=== PATIENT | male | born 1950 | race Caucasian/White ===

== ENCOUNTER 2019-02-05 13:07 | Inpatient (IN) | payer OTHER, MEDICAID ==
[~2019-02-05] VITALS: Ht 162.6 cm; Wt 78.9 kg
[2019-02-05 13:07] VITALS: BP 128/77
--- NOTE | 2019-02-05 13:28 | NUR ---
PT TAKEN TO ER BED 4 VIA WHEELCHAIR
--- NOTE | 2019-02-05 13:35 | NUR ---
REFFERED TO ER BY FOR CHECK UP FOR POSS. DVT D/T INCREASED EDEMA IN RLE. 5/10 PAIN IN RLE. PT TAKES WARFARIN FOR AFIB. WHEELCHAIR BOUND. RLE IS SWOLLEN, RED, AND WARM TO TOUCH. A& O X2, DENIES N/V/D;VSS; PATIENT POSITIONED FOR COMFORT; HOB ELEVATED; BEDRAILS UP X1; BED DOWN. ER MD MADE AWARE OF PT STATUS.
--- NOTE | 2019-02-05 13:35 | NUR ---
Note mele in EDM - 02/05/19 at 1456 by [email or web address] REFFERED TO ER BY FOR CHECK UP FOR POSS. DVT D/T INCREASED EDEMA IN RLE. 5/10 PAIN IN RLE. PT TAKES WARFARIN FOR AFIB. WHEELCHAIR BOUND. RLE IS SWOLLEN, RED, AND WARM TO TOUCH.
--- NOTE | 2019-02-05 14:35 | NUR ---
Note undone in EDM - 02/05/19 at 1458 by [email or web address] REFFERED TO ER BY DR FOR CHECK UP FOR POSS. DVT D/T INCREASED EDEMA IN RLE. 5/10 PAIN IN RLE. PT TAKES WARFARIN FOR AFIB. WHEELCHAIR BOUND. RLE IS SWOLLEN, RED, AND WARM TO TOUCH. A& O X2, DENIES N/V/D;VSS; PATIENT POSITIONED FOR COMFORT; HOB ELEVATED; BEDRAILS UP X1; BED DOWN. ER MD MADE AWARE OF PT STATUS.
[2019-02-05 14:37] LABS: BASOPHILS % (AUTO) 0.3 % (0.0-2.0); EOSINOPHILS # (AUTO) 0.3 K/uL (0-0.4); EOSINOPHILS % (AUTO) 3.6 % (0.0-4.0); HEMATOCRIT 40.9 % (36-52); HEMOGLOBIN 14.2 g/dL (12.0-18.0); LYMPHOCYTES # (AUTO) 1.6 K/uL (2.0-11.5); LYMPHOCYTES % (AUTO) 21.7 % (20.5-51.1); MEAN CORPUSCULAR HEMOGLOBIN 31 pg (27-31); MEAN CORPUSCULAR HGB CONC 35 g/dL (33-37); MEAN CORPUSCULAR VOLUME 88.2 fL (80-94); MONOCYTES # (AUTO) 0.5 K/uL (0.8-1.0); MONOCYTES % (AUTO) 7.5 % (1.7-9.3); NEUTROPHILS # (AUTO) 4.9 K/uL (1.8-7.7); NEUTROPHILS % (AUTO) 66.9 % (42.2-75.2); PLATELET COUNT (AUTO) 173 K/uL (140-450); RED BLOOD CELL COUNT(AUTO) 4.64 MIL/uL (4.20-6.10); RED CELL DISTRIBUTION WIDTH 13.2 % (11.6-13.7); WHITE BLOOD COUNT (AUTO) 7.3 K/uL (4.8-10.8)
[2019-02-05] MEDS ORDERED: ATEN25TA7 PO (14:45)
[2019-02-05] MEDS ORDERED: POTA8TER12 PO (14:45)
[2019-02-05] MEDS ORDERED: CETI-32 PO (14:45)
[2019-02-05] MEDS ORDERED: VITD1000 PO (14:45)
[2019-02-05] MEDS ORDERED: WARF10TA PO (14:45)
[2019-02-05] MEDS ORDERED: ATOR10TA PO (14:45)
[2019-02-05] MEDS ORDERED: TAMS0.4C96 PO (14:45)
[2019-02-05] MEDS ORDERED: LEVE750T3 PO (14:45)
[2019-02-05 14:54] LABS: ANION GAP 11.4 (8-16); CARBON DIOXIDE 27.7 mmol/L (21-32); CHLORIDE 104 mmol/L (98-107); CREATININE 0.9 mg/dL (0.7-1.3); GFR ARICAN-AMERICAN 108 mL/min (>90); GLUCOSE 137 mg/dL (74-106); POTASSIUM 4.1 mmol/L (3.5-5.1); SODIUM SERUM 139 mmol/L (136-145); UREA NITROGEN, BLOOD 10 mg/dL (7-18)
[2019-02-05 15:01] LABS: ALBUMIN 3.2 g/dL (3.4-5.0); ASPARTATE AMINOTRANSFERASE 18 U/L (15-37); D-DIMER < 100 ng/ml (0-400); TOTAL BILIRUBIN 0.5 mg/dL (0.0-1.0)
[2019-02-05 15:14] LABS: URIC ACID 5.8 mg/dL (2.6-7.2)
--- NOTE | 2019-02-05 15:35 | NUR ---
PT RESTING IN BED, FAMILY AT BEDSIDE
[2019-02-05 15:49] LABS: APPEARANCE,URINE CLEAR (CLEAR); BILIRUBIN,URINE NEGATIVE (NEGATIVE); BLOOD, URINE 3+ (NEGATIVE); COLOR,URINE YELLOW (YELLOW); LEUKOCYTE ESTERASE ,URINE NEGATIVE (NEGATIVE); NITRITE, URINE NEGATIVE (NEGATIVE); UGLUCOSE NEGATIVE (NEGATIVE)
[2019-02-05 16:06] LABS: ACETONE, SERUM NEGATIVE (NEGATIVE)
[2019-02-05 16:08] LABS: WBC,URINE 0-5 /HPF (0-5)
--- NOTE | 2019-02-05 16:29 | NUR ---
PT ASLEEP IN BED, FAMILY AT BEDSIDE, NO NEW NEEDS AT THIS TIME
[2019-02-05 16:46] LABS: PROTHROMBIN TIME 64.5 secs (10.8-13.4)
[2019-02-05] MEDS: NACL 0.9% 1,000 ML IV SCH (17:16)
[2019-02-05] MEDS ORDERED: ONDANSETRON 4 MG/2 ML VIAL IM/IVP PRN (17:20)
[2019-02-05] MEDS ORDERED: MORPHINE SULFATE 2 MG/ML SYR IVP PRN (17:20)
[2019-02-05] MEDS ORDERED: DOCUSATE SODIUM 100 MG GELCAP PO PRN (17:20)
[2019-02-05] MEDS ORDERED: ACETAMINOPHEN 325 MG TAB PO PRN (17:20)
--- NOTE | 2019-02-05 17:50 | NUR ---
Patient will be admitted to care of Dr. Welsh. Admited to tele. Will go to room 106B. Belongings list completed. Report to Alec HOFFMAN.
[2019-02-05 18:05] LABS: BARBITURATE, URINE NEG. ng/ml (NEG <=200); BENZODIAZEPINE, URINE NEG. ng/mL (NEG <=200); CANNABINOID, URINE NEG. ng/mL (NEG <=50); COCAINE, URINE NEG. ng/mL (NEG <=300); OPIATE, URINE NEG. ng/mL (NEG <=2000); PHENCYCLIDINE SCREEN,URINE NEG. ng/mL (NEG <=25)
[2019-02-05 18:09] LABS: PHOSPHORUS 3.1 mg/dL (2.5-4.9)
--- NOTE | 2019-02-05 18:10 | NUR ---
PT ARRIVED FROM ER IN [facility], AMBULATED FROM HALLWAY TO BED WITH 2 PERSON MAXIMUM ASSIST, REPORT RECEIVED FROM PREM HOFFMAN, PT PLACED ON FORESTRY CONTRACTOR, PT AWAKE ALERT, SKIN WARM DRY COLOR WNL, PT ORIENTED TO ROOM AND FLOOR, CALL SMILEY WITHIN REACH, SIDE RAILS UP, BED LOCKED IN LOW POSITION, WILL DAUGHTERS AT BEDSIDE, WILL CONTINUE TO MONITOR Addendum: 02/05/19 at 1999 by Caty Stephens RN NO ACTIVE BLEEDING OR ABNORMAL BRUISING NOTED AT THIS TIME.
--- NOTE | 2019-02-05 18:11 | NUR ---
VITALS 139/80, HR 67, RR18, O2SAT 96% RA
--- NOTE | 2019-02-05 18:40 | NUR ---
PT ASSISTED TO BATHROOM, 2 PERSON ASSIST, PT ENCOURAGED TO USE BEDPAN BUT PREFERS TO USE BATHROOM, PT MADE AWARE OF SAFETY PRECAUTIONS, PT INSTRUCTED TO USE CALL LIGHT BEFORE GETTING UP TO BATHROOM, BED ALARM ON.
[2019-02-05 19:02] LABS: THYROID STIMULATING HORMONE 1.4 uIU/mL (0.34-3.74)
--- NOTE | 2019-02-05 19:28 | NUR ---
RECEIVED REPORT FROM CHANO HOFFMAN DAYSHIFT NURSE AT BEDSIDE FOR CONTINUITY OF CARE, PT IN STABLE CONDITION.
--- NOTE | 2019-02-05 19:28 | NUR ---
REPORT GIVEN TO WRAPPING MACHINE HELPER NURSE RICHARD AMARO IN STABLE CONDITION.
[2019-02-05 19:30] VITALS: BP 139/86
--- NOTE | 2019-02-05 20:00 | NUR ---
PT IN BED FAMILY AT BEDSIDE ASSISTING WITH ADMISSION QUESTIONS. PT AMBULATED TO TOILET AND BACK WITH ASSISTANCE. LUNGS CLEAR AND BOWEL SOUNDS PRESENT. SKIN INTACT , HOWEVER RIGHT LEG EDEMATOUS AND DISCOLORED. TP C/O 4/10 PAIN IN LEG AT THIS TIME. V/S FOLLOWS T 98.0 P 72 R 20 B/P 139/86 02 96% ON ROOM AIR.
[2019-02-05] MEDS: levETIRAcetam 500 MG TAB PO SCH (20:42)
[2019-02-05] MEDS: HYDROcodone/APAP 7.5/325 MG 1 TAB PO PRN (20:43)
[2019-02-05 23:26] LABS: PROTHROMBIN TIME 67.8 secs (10.8-13.4)
--- NOTE | 2019-02-05 23:26 | NUR ---
RECEIVED CRITICAL LAB FROM [facility] IN LAB PROTHROMBIN TIME 67.8 AND INR IS 7.7. WILL SPEAK TO RESIDENT MD COVERING FORM DR. WALKER.
--- NOTE | 2019-02-05 23:32 | NUR ---
SPOKE WITH DR. CARROL AGUDELO RESIDENT COVERING FRO DR. WALKER. HE WAS MADE AWARE OF CRITICAL LABS, WILL MONITOR FOR ANY NEW ORDERS.
[2019-02-06] VITALS: BP 118/61
--- NOTE | 2019-02-06 | NUR ---
PT IN BED WITH ALL FALLS AND SEIZURE PRECAUTIONS PLACE, V/S FOLLOWS T 97.8 P 63 R 18 B/P 118/61 02 95% ON ROOM AIR.
--- NOTE | 2019-02-06 00:35 | NUR ---
LAB CALLED REGARDING TIME OF NEXT PT/INR, CONFIRMED WITH DR. BRANHAM, RESIDENT MD THAT NEXT LAB DRAW WILL BE ROUTINE FOR AM LABS. PT IN BED WITH ALL FALLS, AND SEIZURE PRECAUTIONS IN PLACE.
--- NOTE | 2019-02-06 02:50 | NUR ---
PT IN BED SLEEPING NO S/S OF PAIN OR DISCOMFORT NOTED. N/S RUNNING AT 60MLS/HR ORDERED THROUGH LEFT WRIST 20 GUAGE. ALL FALLS AND SEIZURE PRECAUTIONS IN PLACE.
[2019-02-06 04:00] VITALS: BP 12/74
--- NOTE | 2019-02-06 04:41 | NUR ---
PT IN BED SLEEPING , BUT AROUSABLE TO NAME, ALL FALLS AND SEIZURE PRECAUTIONS PLACE V/S FOLLOWS T 98.3 P 58 R 18 B/P 123/74 02 94% ON ROOM AIR. NO S/S OF PAIN OR DISTRESS NOTED. CALL SMILEY IN REACH.
--- NOTE | 2019-02-06 05:49 | NUR ---
PT IN BED, BLOOD DRAWS DONE AT BEDSIDE, NO C/O VOICED BY PT. PT IN LOW BED WITH ALL FALLS PRECAUTIONS IN PLACE.
--- NOTE | 2019-02-06 06:40 | NUR ---
PT IN BED SLEEPING NO S/S OF PAIN OR DISCOMFORT NOTED OWENS CATHETER IN PLACE 1150 OF DARK [place] URINE EMPTED FORM OWENS CATHETER. Addendum: 02/06/19 at 0642 by Raquel Medrano RN WRONG CHART
--- NOTE | 2019-02-06 06:42 | NUR ---
PT IN BED SLEEPING. PT VOIDED X4 NO BM NOTED NO S/S OF PAIN OR DISTRESS NOTED, ALL FALLS AND SEIZURE PRECAUTIONS IN PLACE. LAB DRAWS AT BEDSIDE. N/S RUNNING 60 VIA LEFT WRIST 20G.
--- NOTE | 2019-02-06 06:48 | NUR ---
PT IN STABLE CONDITION, IN BED ASLEEP , WILL ENDORSE CARE, TO NEXT SHIFT.
[2019-02-06 07:18] LABS: PROTHROMBIN TIME 70.1 secs (10.8-13.4)
--- NOTE | 2019-02-06 07:20 | NUR ---
RECEIVED PT REPORT FROM SEWING MACHINE MECHANIC RN AT BEDSIDE. PT IS POLISH SPEAKING, AAOX4. PT ON TELE MONITORING. SKIN INTACT, WARM AND DRY. RIGHT FOOT NON PITTING EDEMA AND DISCOLORATION NOTED. IV NOTED TO LEFT WRIST 20G, PATENT AND INTACT, ASYMPTOMATIC. RIGHT SIDE DEFICIT DUE TO STROKE. CALL LIGHT WITHIN REACH, BEDSIDE TABLE AND PERSONAL ITEMS ON LEFT SIDE. SIDE RAILS UP, BED LOCKED IN LOWEST POSITION, WILL CONTINUE TO MONITOR
[2019-02-06 08:00] VITALS: BP 136/77
--- NOTE | 2019-02-06 08:12 | NUR ---
PATIENT HAS BEEN SCREENED AND CATEGORIZED MODERATE NUTRITION RISK. PATIENT WILL BE SEEN WITHIN 3-5 DAYS OF ADMISSION. 02/08/[address]
[2019-02-06] MEDS: ATENOLOL 25 MG TAB PO SCH (08:33)
[2019-02-06] MEDS: CHOLECALCIFEROL 1,000 IU TAB PO SCH (08:39)
[2019-02-06] MEDS: ATORVASTATIN 20 MG TAB PO SCH (08:39)
[2019-02-06] MEDS: TAMSULOSIN 0.4 MG CAP PO SCH (08:40)
[2019-02-06] MEDS: HYDROcodone/APAP 7.5/325 MG 1 TAB PO PRN ×2 (08:41→21:31)
[2019-02-06] MEDS: levETIRAcetam 500 MG TAB PO SCH ×2 (08:42→21:30)
--- NOTE | 2019-02-06 10:06 | NUR ---
ASSISTED PT TO RESTROOM TO HAVE BOWEL MOVEMENT. PT STAYED AT RESTROOM FOR 20 MINS BUT PT WAS NOT ABLE TO MAKE BOWEL MOVEMENT AND WANTED TO GO TO BED AGAIN. HOWEVER, PT STATED HE MADE BOWEL MOVEMENT YESTERDAY. ASSISTED PT BACK TO BED SAFE. IV SITE PATENT AND ASYMPTOMATIC. 1 PRUNE JUICE GIVEN TO PATIENT.
[2019-02-06] MEDS: NACL 0.9% 1,000 ML IV SCH (10:13)
[2019-02-06 12:00] VITALS: BP 115/60
--- NOTE | 2019-02-06 15:00 | NUR ---
PROVIDED PT WITH BEDSIDE COMMODE, ASSISTED PT TO COMMODE. PT TRIED TO NUMBER 2, STILL C/O CONSTIPATION, COLACE WILL BE GIVEN.
[2019-02-06 15:34] LABS: PROTHROMBIN TIME 67.8 secs (10.8-13.4)
[2019-02-06 16:00] VITALS: BP 116/71
--- NOTE | 2019-02-06 19:15 | NUR ---
RECEIVED REPORT FROM ANNABELLE HOFFMAN AND NOEMI RN DAYSHIFT NURSES AT BEDSIDE FOR CONTINUITY OF CARE, PT IN STABLE CONDITION.
--- NOTE | 2019-02-06 19:15 | NUR ---
ENDORSED PT TO SUPERINTENDENT [employer]AND[employer]LL OPERATIONS RN. PT IN STABLE CONDITION.
--- NOTE | 2019-02-06 19:49 | NUR ---
PT IN BED ALL FALLS AND SEIZURE PRECAUTIONS IN PLACE. DAUGHTER AT BEDSIDE. RIGHT LEG ELEVATED AND PT C/O MODERATE PAIN 5/10 IN RIGHT LEG, WILL MEDICATE. LUNGS CLEAR AND POSITIVE FOR BOWEL SOUNDS ALL 4 QUADS. PT REMINDED THAT HE NEEDS TO GIVE A STOOL SAMPLE, COMMODE AT BEDSIDE. IV SITE INTACT AND ASYMPTOMATIC RUNNING N/S AT 60MLS/HR.
--- NOTE | 2019-02-06 19:58 | NUR ---
PT IN BED V/S FOLLOWS T 98.3 P 66 R18 B/P 130/71 02 98% ON ROOM AIR.
[2019-02-06 20:00] VITALS: BP 130/71
--- NOTE | 2019-02-06 21:35 | NUR ---
PT GIVEN NORCO FOR MODERATE PAIN IN FOOT 03/13. PT ALSO GIVEN DUE MEDS OF [place]. SEIZURE AND FALLS PRECAUTIONS IN PLACE. PT RIGHT LEG ELEVATED ORDERED.
--- NOTE | 2019-02-06 22:30 | NUR ---
PT ASLEEP IN BED NO S/S OF BLEEDING OR C/O OF PAIN. PT V/S FOLLOWS T 97.5 P 66 R 18 B/P 119/60 02 95% ON ROOM AIR. PT REMINDED ABOUT STOOL SAMPLE HE SAID THAT HE COULD PROBABLY PROVIDE ONE IN THE MORNING.
[2019-02-07] VITALS: BP 119/60
--- NOTE | 2019-02-07 00:51 | NUR ---
PT IN BED ASLEEP ALL FALLS AND SEIZURE PROTOCOLS IN PLACE.
[2019-02-07] MEDS: NACL 0.9% 1,000 ML IV SCH ×2 (02:29→18:35)
[2019-02-07 04:00] VITALS: BP 133/75
--- NOTE | 2019-02-07 05:09 | NUR ---
PT IN BED NO S/S OF PAIN OR DISTRESS NOTED BED LOW AND ALL FALLS AND SEIZURE PRECAUTIONS IN PLACE. V/S FOLLOWS T 97.9 P 60 R 18 B/P 133/75 02 975 ON ROOM AIR.
--- NOTE | 2019-02-07 06:49 | NUR ---
PT IN BED LABS DONE AT BEDSIDE, ALL FALLS AND SEIZURE PRECAUTIONS IN PLACE, PT IN BED NO S/S OF PAIN OR DISTRESS NOTED. WILL ENDORSE PLAN OF CARE TO DAYSHIFT. PT IN STABLE CONDITION.
--- NOTE | 2019-02-07 07:30 | NUR ---
RECEIVED REPORT FROM NOVELTY PRINTING MACHINE OPERATOR NURSE PREM. PT IN STABLE CONDITION. RESPIRATIONS EVEN AND UNLABORED. IV INTACT AND PATENT. SAFETY MEASURES IN PLACE. BED IN LOW POSITION. CALL LIGHT AT BEDSIDE. BED ALARM ON. WILL CONTINUE TO MONITOR.
[2019-02-07 07:31] LABS: BASOPHILS % (AUTO) 0.3 % (0.0-2.0); EOSINOPHILS # (AUTO) 0.3 K/uL (0-0.4); EOSINOPHILS % (AUTO) 4.5 % (0.0-4.0); HEMATOCRIT 40.2 % (36-52); HEMOGLOBIN 13.8 g/dL (12.0-18.0); LYMPHOCYTES # (AUTO) 1.9 K/uL (2.0-11.5); MEAN CORPUSCULAR HEMOGLOBIN 30 pg (27-31); MEAN CORPUSCULAR HGB CONC 34 g/dL (33-37); MEAN CORPUSCULAR VOLUME 88.1 fL (80-94); MONOCYTES # (AUTO) 0.5 K/uL (0.8-1.0); MONOCYTES % (AUTO) 7.4 % (1.7-9.3); NEUTROPHILS # (AUTO) 4.5 K/uL (1.8-7.7); NEUTROPHILS % (AUTO) 61.8 % (42.2-75.2); PLATELET COUNT (AUTO) 153 K/uL (140-450); RED BLOOD CELL COUNT(AUTO) 4.57 MIL/uL (4.20-6.10); RED CELL DISTRIBUTION WIDTH 13.3 % (11.6-13.7); WHITE BLOOD COUNT (AUTO) 7.2 K/uL (4.8-10.8)
[2019-02-07 07:55] LABS: ANION GAP 11.6 (8-16); CARBON DIOXIDE 26.5 mmol/L (21-32); CREATININE 0.9 mg/dL (0.7-1.3); POTASSIUM 4.1 mmol/L (3.5-5.1)
[2019-02-07 08:00] VITALS: BP 113/77
--- NOTE | 2019-02-07 09:00 | NUR ---
GAVE ORDERED DUE MEDICATIONS AT THIS TIME. PT TOLERATED WELL. WILL CONTINUE TO MONITOR. BED IN LOW POSITION. BED ALARM ON. CALL LIGHT AT BEDSIDE.
--- NOTE | 2019-02-07 09:01 | NUR ---
WARP SPINNER [id number] YVAN USED FOR MEDICATION PASS. PT VERBALIZED UNDERSTANDING OF MEDICATIONS GIVEN. ALL QUESTIONS ANSWERED AT THIS TIME.
[2019-02-07] MEDS: CHOLECALCIFEROL 1,000 IU TAB PO SCH (09:04)
[2019-02-07] MEDS: TAMSULOSIN 0.4 MG CAP PO SCH (09:04)
[2019-02-07] MEDS: ATORVASTATIN 20 MG TAB PO SCH (09:04)
[2019-02-07] MEDS: ATENOLOL 25 MG TAB PO SCH (09:04)
[2019-02-07] MEDS: levETIRAcetam 500 MG TAB PO SCH ×2 (09:05→20:55)
--- NOTE | 2019-02-07 09:43 | NUR ---
CRITICAL LAB PT 44, INR 4.9 LABS TRENDING DOWN LABS BEFORE PT 67.8 INR 7.70
[2019-02-07 10:14] LABS: MAGNESIUM 1.8 mg/dL (1.8-2.4)
--- NOTE | 2019-02-07 10:24 | NUR ---
PT IN STABLE CONDITION. FAMILY AT BEDSIDE. BED IN LOW POSITION. BED ALARM ON. CALL LIGHT AT BEDSIDE. WILL CONTINUE TO MONITOR.
[2019-02-07 12:00] VITALS: BP 112/70
--- NOTE | 2019-02-07 13:43 | NUR ---
PT LYING IN BED SLEEPING IN STABLE CONDITION. RESPIRATIONS EVEN AND UNLABORED. BED IN LOW POSITION. BED ALARM ON. CALL LIGHT AT BEDSIDE. WILL CONTINUE TO MONITOR.
[2019-02-07 16:00] VITALS: BP 122/76
--- NOTE | 2019-02-07 16:07 | NUR ---
PT IN STABLE CONDITION. FAMILY AT BEDSIDE. WILL CONTINUE TO MONITOR. BED IN LOW POSITION. BED ALARM ON. CALL LIGHT AT BEDSIDE.
[2019-02-07] MEDS: HYDROcodone/APAP 7.5/325 MG 1 TAB PO PRN (18:59)
[2019-02-07] MEDS ORDERED: BISACODYL 10 MG SUPP RC ONE (19:05)
--- NOTE | 2019-02-07 19:30 | NUR ---
RECEIVED PATIENT RESTING IN BED ACCOMPANIED BY FAMILY MEMBER. PATIENT ABLE TO VERBALIZED HIS NEEDS. DISCUSSED PLAN OF CARE. RESPIRATION EVEN AND UNLABORED. BED IN LOW LOCK POSITION.EXPLAINED TO USE CALL LIGHT FOR ASSISTANCE. CALL LIGHT WITHIN REACH. WILL CONTINUE TO MONITOR.
--- NOTE | 2019-02-07 19:30 | NUR ---
GAVE REPORT TO DEPUTY [employer]ONWE[employer]'S ATTORNEY NURSE. PT IN STABLE CONDITION.
[2019-02-07 20:00] VITALS: BP 153/99
--- NOTE | 2019-02-07 21:00 | NUR ---
V/S TAKEN . SCHEDULE MEDICATION GIVEN TOLERATED WELL. ASSISTING PATIENT TO BEDSIDE COMMODE . CALL LIGHT WITHIN REACH. NO S/S OF DISTRESS NOTED.
--- NOTE | 2019-02-08 | NUR ---
V/S TAKEN. SEEN PATIENT RESTING. NO S/S OF DISTRESS NOTED. WILL CONTINUE TO MONITOR.
--- NOTE | 2019-02-08 02:00 | NUR ---
CHECKED PATIENT RESTING. SEEN CHEST RISE AND FALL. PATIENT APPEARS NOT IN DISTRESS. CALL LIGHT WITHIN REACH. WILL CONTINUE TO MONITOR.
--- NOTE | 2019-02-08 04:00 | NUR ---
V/S TAKEN AND RECORDED WNL. CALL LIGHT WITHIN REACH. WILL CONTINUE TO MONITOR.
--- NOTE | 2019-02-08 07:10 | NUR ---
ENDORSEMENT GIVEN TO AM SHIFT NURSE AT BEDSIDE. PATIENT IN STABLE CONDITION.
--- NOTE | 2019-02-08 07:11 | NUR ---
Received bedside report from pm nurse Milton. Pt in bed, awake, FLACC 0, no c/o discomfort. Call light within reach.
[2019-02-08 08:00] VITALS: BP 107/62
[2019-02-08 08:08] LABS: BASOPHILS % (AUTO) 0.1 % (0.0-2.0); EOSINOPHILS # (AUTO) 0.3 K/uL (0-0.4); EOSINOPHILS % (AUTO) 3.4 % (0.0-4.0); HEMATOCRIT 42.4 % (36-52); HEMOGLOBIN 14.7 g/dL (12.0-18.0); LYMPHOCYTES # (AUTO) 1.8 K/uL (2.0-11.5); LYMPHOCYTES % (AUTO) 24.3 % (20.5-51.1); MEAN CORPUSCULAR HEMOGLOBIN 31 pg (27-31); MEAN CORPUSCULAR HGB CONC 35 g/dL (33-37); MEAN CORPUSCULAR VOLUME 88.9 fL (80-94); MONOCYTES # (AUTO) 0.5 K/uL (0.8-1.0); MONOCYTES % (AUTO) 6.9 % (1.7-9.3); NEUTROPHILS # (AUTO) 4.9 K/uL (1.8-7.7); NEUTROPHILS % (AUTO) 65.3 % (42.2-75.2); PLATELET COUNT (AUTO) 174 K/uL (140-450); RED BLOOD CELL COUNT(AUTO) 4.77 MIL/uL (4.20-6.10); RED CELL DISTRIBUTION WIDTH 13.5 % (11.6-13.7); WHITE BLOOD COUNT (AUTO) 7.5 K/uL (4.8-10.8)
[2019-02-08 08:16] LABS: ANION GAP 8.9 (8-16); CARBON DIOXIDE 29.9 mmol/L (21-32); CREATININE 0.9 mg/dL (0.7-1.3); POTASSIUM 3.8 mmol/L (3.5-5.1)
[2019-02-08 08:22] LABS: PROTHROMBIN TIME 17.4 secs (10.8-13.4)
[2019-02-08] MEDS: ATENOLOL 25 MG TAB PO SCH (09:14)
[2019-02-08] MEDS: ATORVASTATIN 20 MG TAB PO SCH (09:14)
[2019-02-08] MEDS: levETIRAcetam 500 MG TAB PO SCH (09:15)
[2019-02-08] MEDS: TAMSULOSIN 0.4 MG CAP PO SCH (09:15)
[2019-02-08] MEDS: CHOLECALCIFEROL 1,000 IU TAB PO SCH (09:15)
[2019-02-08] MEDS ORDERED: APIX5TAB PO (09:35)
--- NOTE | 2019-02-08 09:45 | NUR ---
Dr. Cordova at bedside speaking with pt & daughter. Pt awake, verbal, no signs of distress, FLACC 0. Left wrist IV intact with ongoing NS @ 60ml/hr. Call light within reach.
[2019-02-08] MEDS: NACL 0.9% 1,000 ML IV SCH (11:56)
--- NOTE | 2019-02-08 12:00 | NUR ---
Written & discharge instructions provided to pt with daughter Aide at bedside to translate. Pt unable to signs discharge papers d/t rt-sided weakness; signed by daughter with pt permission. Left forearm IV discontinued. Per daughter, she will transport pt via private care after lunch. Pt assisted by daughter to don personal clothes.
--- NOTE | 2019-02-08 12:40 | NUR ---
Pt discharged to home at this time. Pt left unit via wheelchair, accompanied by RN & daughter Aide. Arm bands removed. Pt transferred from wheelchair to car with 1-person mod assist. Pt stable, no signs of distress. All belongings with pt upon departure.
[2019-02-08] MEDS ORDERED: APIXABAN 2.5 MG TAB PO SCH (21:00)
== END 2019-02-08 12:40 | disposition home or self-care (01) | DRG 813 ==
LOC: MED 13:07 → MTU 17:16
PROVIDERS: ADMIT General Practice; ATTEND General Practice
DX: D68.32 Hemorrhagic disorder due to extrinsic circulating anticoagulants (principal); E44.0 Moderate protein-calorie malnutrition; I69.351 Hemiplegia and hemiparesis following cerebral infarction affecting right dominant side; E78.5 Hyperlipidemia, unspecified; R31.0 Gross hematuria; T45.515A Adverse effect of anticoagulants, initial encounter; G40.909 Epilepsy, unspecified, not intractable, without status epilepticus; L81.9 Disorder of pigmentation, unspecified; I11.9 Hypertensive heart disease without heart failure; I87.8 Other specified disorders of veins; M19.071 Primary osteoarthritis, right ankle and foot; N28.1 Cyst of kidney, acquired; I48.0 Paroxysmal atrial fibrillation; I87.2 Venous insufficiency (chronic) (peripheral); N40.0 Benign prostatic hyperplasia without lower urinary tract symptoms; Z95.828 Presence of other vascular implants and grafts; Z86.718 Personal history of other venous thrombosis and embolism; Y92.89 Other specified places as the place of occurrence of the external cause; Z95.818 Presence of other cardiac implants and grafts; Z79.899 Other long term (current) drug therapy; Z90.49 Acquired absence of other specified parts of digestive tract; Z68.29 Body mass index [BMI] 29.0-29.9, adult
CPT/HCPCS: 36415; 71045; 73590; 73630; 76770; 80048; 80053; 80305; 81001; 82009; 82140; 82150; 82550; 83036; 83735; 83880; 84100; 84436; 84443; 84484; 84550; 85025; 85379; 85610; 85730; 86886; 86900; 86901; 87081; 93005; 93925; 93971; 99285; J7030; Q0092